=== PATIENT | female | born 1955 | race Caucasian/White ===

== ENCOUNTER 2023-01-28 05:04 | Observation (INO) ==
--- NOTE | 2023-01-14 10:42 | PAT Medication Instructions ---
Medication Instructions Date of Service January 14, 2023 Home Medications albuterol sulfate 90 mcg/actuation aerosol inhaler 1 inh inhalation QID PRN SOB amlodipine 5 mg tablet 5 mg PO QAM aspirin 81 mg capsule 81 mg PO QAM atorvastatin 10 mg tablet 10 mg PO QAM calcium carbonate 600 mg-vitamin D3 5 mcg (200 unit) tablet 1 tab PO QAM dulaglutide 1.5 mg/0.5 mL subcutaneous pen injector (Trulicity) 1.5 mg subcut WK esomeprazole magnesium 20 mg capsule,delayed release (Nexium) 20 mg PO QAM irbesartan 150 mg tablet 150 mg PO QAM metformin 500 mg tablet,extended release 24 hr 500 mg PO QAM multivitamin 1 tab PO QAM Continue as directed dulaglutide 1.5 mg/0.5 mL subcutaneous pen injector (Trulicity) 1.5 mg subcut WK DO NOT take the morning of surgery calcium carbonate 600 mg-vitamin D3 5 mcg (200 unit) tablet 1 tab PO QAM irbesartan 150 mg tablet 150 mg PO QAM metformin 500 mg tablet,extended release 24 hr 500 mg PO QAM multivitamin 1 tab PO QAM Take morning of surgery With a small sip of water, OTHERWISE NOTHING TO EAT OR DRINK AFTER MIDNIGHT: albuterol sulfate 90 mcg/actuation aerosol inhaler 1 inh inhalation QID PRN SOB (use if needed; please bring rescue inhaler with you to hospital day of surgery if possible) amlodipine 5 mg tablet 5 mg PO QAM aspirin 81 mg capsule 81 mg PO QAM (continue as normal unless told otherwise by surgeon) atorvastatin 10 mg tablet 10 mg PO QAM esomeprazole magnesium 20 mg capsule,delayed release (Nexium) 20 mg PO QAM Take evening before surgery albuterol sulfate 90 mcg/actuation aerosol inhaler 1 inh inhalation QID PRN SOB (if needed) Other Notes If you have any questions please call us at [phone] or [phone] or [phone] or [phone]
--- NOTE | 2023-01-17 11:00 | Anesthesiology Consultation ---
Date of Service January 17, 2023 Assessment & Plan (1) Encounter for pre-operative examination: - COVID screening: Per assessment on 01/17: No known COVID-19 positive contacts or current COVID-19 related symptoms. Travel screen negative. Patient vaccinated. At surgeon discretion if preop Covid testing being done. - Check BSG AM DOS - Outpatient joint assessment: Pt currently scheduled for inpatient pathway. If surgeon requests review for outpatient joint pathway, patient is not recommended candidate for outpatient joint program from anesthesia standpoint. - Patient acceptable risk for surgery pending surgeon-ordered PCP preop evaluation (Kathy Erickson/iwona Menchaca already done per pt). Chart Review Chart Review: Patient seen in Pre Admission Testing Teaching & Discussion Pre-Anesthesia Teaching/Discussion Notes: Instructed NPO after midnight before surgery,except medications with 15 cc of water. Medication instructions provided according to the PAT guidelines. History Surgery Operation Date: 01/28/23 07:15 Proposed Procedures p Left Total Knee Arthroplasty - Mateo Marino MD Height/Weight Height: 5 ft 4 in Weight: 98.1 kg Allergies Allergy/AdvReac Type Severity Reaction Status Date / Time Iodinated Contrast Media Allergy Severe Anaphylaxis Verified 01/14/23 08:27 onion Allergy Intermediate Verified 01/17/23 14:13 Medications Home Medications Medication Instructions Recorded Confirmed Last Taken albuterol sulfate 90 mcg/actuation 1 inh inhalation QID PRN SOB 01/14/23 01/14/23 Unknown aerosol inhaler amlodipine 5 mg tablet 5 mg PO QAM 01/14/23 01/14/23 Unknown aspirin 81 mg capsule 81 mg PO QAM 01/14/23 01/14/23 Unknown atorvastatin 10 mg tablet 10 mg PO QAM 01/14/23 01/14/23 Unknown calcium carbonate 600 mg-vitamin 1 tab PO QAM 01/14/23 01/14/23 Unknown D3 5 mcg (200 unit) tablet dulaglutide 1.5 mg/0.5 mL 1.5 mg subcut WK 01/14/23 01/14/23 Unknown subcutaneous pen injector (Trulicity) esomeprazole magnesium 20 mg 20 mg PO QAM 01/14/23 01/14/23 Unknown capsule,delayed release (Nexium) irbesartan 150 mg tablet 150 mg PO QAM 01/14/23 01/14/23 Unknown metformin 500 mg tablet,extended 500 mg PO QAM 01/14/23 01/14/23 Unknown release 24 hr multivitamin 1 tab PO QAM 01/14/23 01/14/23 Unknown Past Medical History Medical History Arthritis Diabetes mellitus, type 2 GERD (gastroesophageal reflux disease) Hx of migraines Hx of squamous cell carcinoma Hyperlipidemia Hypertension Reid's neuroma of left foot Neuropathy LEFT FOOT Exercise / Class Metabolic Activity II 4-5 Yardwork/Stairs/Walk up hill Past Family History Family History Other No family history of adverse response to anesthesia Past Surgical History Surgical History H/O abdominoplasty History of arthroscopy LEFT KNEE History of bilateral tubal ligation History of section X3 History of cholecystectomy History of colonoscopy History of partial hysterectomy History of tonsillectomy and adenoidectomy Nausea and vomiting after administration of anesthetic agent [place] teeth removed Past Anesthesia History No Hx of Anesthesia Complications (except single episode post-op nausea) *Grandmother- postop liver biopsy blood clot (resulted in )* History of PONV History of PONV (Single episode post-op nausea after knee scope) and Hx of Motion Sickness Social History Smoking Status: Never smoker Do You Dip or Chew Tobacco: No Hx Alcohol Use: Yes alcohol intake frequency: holidays/special occasions only Hx Substance Use: No substance use type: does not use Review of Systems Patient denies chest pain, shortness of breath, dyspnea on exertion, fever, chills, cough, wheezing, palpitations. Physical Exam Vital Signs VITALS BP 129/79 P 74 TEMP 98.2 SP02 95%RA RESP 18 PHYSICAL Full cervical extension range of motion. Full TMJ range of motion. TMD 3 finger breaths Mallampati Score 3 Dentition: intact, + implants, upper front veneers Lungs: clear throughout to auscultation Cardiac: regular rate and rhythm, no murmurs noted Spine: normal Carotid arteries: negative bruit Extremities: no edema Lab Results Anesthesia Preop Results Results Anesthesia Widget: WBC 7.89 K/ul (4.8-10.8) 01/17/23 Hgb 14.6 g/dl (12.0-16.0) 01/17/23 Hct 42.4 % (37.0-47.0) 01/17/23 Plt 260 K/uL (130-400) 01/17/23 Na 138 mmol/L (136-145) 01/17/23 K 4.2 mmol/L (3.5-5.1) 01/17/23 Cl 105 mmol/L (98-107) 01/17/23 CO2 25 mmol/L (21-32) 01/17/23 BUN 21 mg/dl (6-23) 01/17/23 Creat 0.62 mg/dl (0.6-1.2) 01/17/23 Glucose Level 101 mg/dl (70-99(Fasting)) H 01/17/23 PT 10.3 Seconds (9.0-12.0) 01/17/23 PTT 24.1 Seconds (21.0-31.0) 01/17/23 INR 1.0 (0.9-1.1) 01/17/23 HA1c 5.7 % (4.5-5.6) H 01/17/23 Urine Color Yellow 01/17/23 Urine Appearance Clear (Clear) 01/17/23 Urine pH 5.0 (4.5-7.5) 01/17/23 Urine Specific [place] 1.032 (1.000-1.030) H 01/17/23 Urine Protein Negative (Negative) 01/17/23 Urine Glucose (UA) Negative (Negative) 01/17/23 Urine Ketones Negative (Negative) 01/17/23 Urine Blood Negative (Negative) 01/17/23 Urine Nitrite Negative (Negative) 01/17/23 Urine Bilirubin Negative (Negative) 01/17/23 Urine Urobilinogen Negative (Negative) 01/17/23 Urine Leukocyte Esterase Negative (Negative) 01/17/23 Blood Type A Positive 01/17/23 Antibody Screen NEGATIVE 01/17/23 Testing Electrocardiogram Date: 01/09/23 Findings: + NSR @ (75) Chest X-Ray Date: 01/17/23 FINDINGS: No pneumothorax. No pleural effusions. The lungs are clear. The heart is normal in size. There is slight elevation the right hemidiaphragm. Prior cholecystectomy. Mild degenerative changes within the thoracic spine. IMPRESSION: No acute process. COVID-19 Risk Screen Screening Information COVID-19 Screen Date: 01/17/23 Exposure 21 Days Family/Household +COVID Last 21 Days: No Exposure 10 Days Any COVID Exposure Last 10 Days: No Symptoms Last 10 Days Experienced COVID Sx Last 10 Days: No + COVID 0-90 Days COVID + in Last 0-90 Days: No
[2023-01-28] MEDS ORDERED: ceFAZolin 2000MG 2,000 MG/15 ML SYR IV SCH (06:00)
[2023-01-28] MEDS ORDERED: LR 500ML BOLUS, THEN 15ML/HR IV SCH (06:00)
[2023-01-28] MEDS ORDERED: ROPIVACAINE 0.5% HCL/PF 150 MG, BUPIVACAINE 0.75% MPF 20 ML, EPINEPHrine 0.15 MG, Ketor... INFIL SCH (06:00)
[2023-01-28] MEDS ORDERED: LR 60ML/HR IV SCH (06:00)
[2023-01-28] MEDS ORDERED: TRANEXAMIC ACID 1,000 MG **IV Pre-op IV SCH (06:00)
[2023-01-28] MEDS ORDERED: BUPIVACAINE 0.5 % 5 MG/1 ML PF 10ML VIAL ONE (06:23)
[2023-01-28] MEDS ORDERED: BUPIVACAINE 0.25% PF 30 ML VIAL ONE (06:23)
--- NOTE | 2023-01-28 06:29 | History & Physical Bridge Note ---
Date of Service January 28, 2023 History & Physical Bridge Note I have examined the patient, reviewed the History & Physical and in the interval since the performance of the History & Physical I have noted the following changes of clinical significance:consent obtained/site verified, no changes noted
[2023-01-28] MEDS ORDERED: PROPOFOL IV EMULSION 10 MG/ML 20 ML VIAL IV ONE ×2 (06:38→07:18)
[2023-01-28] MEDS ORDERED: LIDOCAINE 2% MPF LOCAL 5 ML VIAL ONE (06:38)
[2023-01-28] MEDS ORDERED: fentaNYL citrate PF 100 MCG/2 ML VIAL ONE (06:39)
[2023-01-28] MEDS ORDERED: MIDAZOLAM HCL 1 MG/ML 2ML VIAL ONE ×2 (06:39→07:13)
[2023-01-28] MEDS ORDERED: ORTHO JOINT ANESTHETIC ONE (06:58)
[2023-01-28] MEDS ORDERED: KETAMINE 50 MG/5 ML SYRINGE ONE (07:26)
--- NOTE | 2023-01-28 08:46 | Post Operative Brief Note ---
Immediate Post Op Note v1 Date of Surgery January 28, 2023 Pre & Post Diagnosis Operation Date: 01/28/23 07:15 <No data on this case meets the specified criteria> I identified the patient and participated in the time-out.: Yes Procedure Operation Date: 01/28/23 07:15 <No data on this case meets the specified criteria> Surgeon Mateo Marino MD Cardiology Rn Chanel/Ronn/Deanne Estimated Blood Loss 25 Findings Consistent with Post-Op Diagnosis medial and PFJ grade 4 disease
--- NOTE | 2023-01-28 08:53 | Operative Report ---
Post Operative Report Pre & Post Diagnosis Operation Date: 01/28/23 07:15 Pre-Op Diagnosis: Left Knee Degenerative Joint Disease Post-Op Diagnosis: Left Knee Degenerative Joint Disease I identified the patient and participated in the time-out.: Yes Procedure Operation Date: 01/28/23 07:15 Actual Procedures p Left Total Knee Arthroplasty(Left) - Mateo Marino MD Surgeon Ned Card Placer Chanel/Ronn/Deanne Estimated Blood Loss 25 Findings Consistent with Post-Op Diagnosis Specimens See attending dictation Disposition Accompanied Patient To Recovery: Yes Disposition: Recovery Room Description of Procedure Patient was taken to the operating room where anesthesia was administered. Patient was prepped and draped in the usual sterile fashion. Please see attending's operative report for specifics of the procedure. I was present for the entire case from initial patient positioning through final wound closure. Assistance was provided in tissue retraction, hemostasis, and final wound closure. Patient was taken to the recovery room in satisfactory condition. I attest to the content of the Intraoperative Record and any orders documented therein. Any exceptions are noted below.
--- NOTE | 2023-01-28 09:03 | Operative Report ---
Post Operative Report Pre & Post Diagnosis Operation Date: 01/28/23 07:15 Pre-Op Diagnosis: Left Knee Degenerative Joint Disease Post-Op Diagnosis: Left Knee Degenerative Joint Disease I identified the patient and participated in the time-out.: Yes Procedure Operation Date: 01/28/23 07:15 Actual Procedures p Left Total Knee Arthroplasty(Left) - Mateo Marino MD Surgeon DEVANTE Marino MD Inspector Heating And Refrigeration Chanel/Ronn/Deanne Estimated Blood Loss 25 Findings Consistent with Post-Op Diagnosis see operative report Specimens see operative report Drains none Complications none Disposition Accompanied Patient To Recovery: Yes Indications This 68 year old female presented to the office with complaints of persisting left knee pain. She had tried conservative care measures without improvement. She elected to proceed with surgical intervention after being educated about potential risks and outcomes. Preoperative imaging was obtained. Description of Procedure The patient was administered a spinal anesthetic and then taken to the operating room where she was given sedation. She was prepped and draped in the usual sterile fashion. Please see Dr. Marino's operative report for specifics of the procedure. I was present for the entire case from initial patient positioning through final wound closure. Assistance was provided in tissue retraction, hemostasis, trial implant placement, final implant placement, and final wound closure. Patient was taken to the recovery room in satisfactory condition. I attest to the content of the Intraoperative Record and any orders documented therein. Any exceptions are noted below.
--- NOTE | 2023-01-28 09:07 | XRay Report ---
XR knee LT 1 or 2V routine HISTORY: 68 years-old Female S/P L TKA left knee total joint arthroplasty COMPARISON: 08/19/2022 TECHNIQUE: 2 views of the left knee FINDINGS: Total joint arthroplasty with patellar resurfacing. Anterior midline skin sung with expected posto perative soft tissue swelling and deep tissue air. No acute fracture or unexpected opaque foreign bod y. IMPRESSION: Total joint arthroplasty with expected postoperative changes. ACT 112: Negative or not required by law. The above report was generated using voice recognition software. It may contain grammatical, syntax o r spelling errors. Electronically signed by: Eugene Pineda M.D. 01/28/2023 9:06 AM
--- NOTE | 2023-01-28 09:08 | Discharge Summary (DS) ---
DATE OF ADMISSION: 01/28/2023. DATE OF POTENTIAL DISCHARGE: 01/29/2023. PREOPERATIVE DIAGNOSIS: Osteoarthritis, left knee. POSTOPERATIVE DIAGNOSIS: Osteoarthritis, left knee. HOSPITAL COURSE: The patient underwent elective left total knee replacement for intractable knee joao n. A preoperative assessment was good both from a cardiology and from a medical perspective. PAST MEDICAL HISTORY: Remarkable for arthritis, asthma, benign essential hypertension, skin cancer, chronic pain disorder, diabetes mellitus, GERD, hyperlipidemia. SOCIAL HISTORY: Reveals no tobacco or heavy alcohol use. She is and lives with her spouse. PREADMISSION MEDICATIONS: Include albuterol, amlodipine, aspirin, cholecalciferol, Trulicity, epinep hrine, Nexium, Avapro and Glucophage. REVIEW OF SYSTEMS: Presently reveals no chest pain, shortness of breath, fever, chills, nausea, vomi ting or headache. ASSESSMENT: Status post left total knee replacement. Hospital course to this point has been unevent ful. Continue postoperative care pathway. Discharge tomorrow. ALLERGIES: INCLUDE IODINATED CONTRAST MEDIA AND COVID-19 REACTION WITH SHORTNESS OF BREATH. Job ID: [id number]
--- NOTE | 2023-01-28 09:12 | Operative Report (OR) ---
DATE OF PROCEDURE: 01/28/2023. SURGEON: Mateo Marino MD. MULTIPLE KNIFE EDGE TRIMMER OPERATOR: Chanel. SECOND MULTIPLE KNIFE EDGE TRIMMER OPERATOR: Clive Brody PA-C/ THIRD MULTIPLE KNIFE EDGE TRIMMER OPERATOR: phillip Ailcea student. PREOPERATIVE DIAGNOSIS: Osteoarthritis, left knee, with varus flexion deformity. POSTOPERATIVE DIAGNOSIS: Osteoarthritis, left knee, with varus flexion deformity. OPERATION PERFORMED: Cemented left total knee replacement. SUMMARY OF IMPLANTS: Size 2 left femur posterior cruciate substituting size 2 rotating platform tray , size 35 patella, size 2 x 10 rotating platform PCL stabilizing insert, 2 bags of [place] G cement. ESTIMATED BLOOD LOSS: 25 mL. CRYSTALLOID: 1600 mL. PATHOLOGY: Pending on bone. DVT PROPHYLAXIS: Per protocol. PERIOPERATIVE SITUATION: Medically cleared female with intractable knee pain. At this point in time , wants to proceed with surgical treatment. She has recently failed arthroscopy done elsewhere. She understands that this is an implant and this could have roughly 20% of people with complaints. DESCRIPTION OF PROCEDURE: The patient was appropriately identified, site verified, consent verified. Antibiotics were confirmed as being given. The left lower extremity was prepped and draped in the usual routine fashion. Tourniquet was inflated to 275 mmHg after exsanguination of the limb with a r ubber Esmarch bandage for a total of 55 minutes. Midline exposure was utilized. Parapatellar arthrotomy performed. Synovectomy completed, osteophyte s resected. Distal femur entered. Cruciates resected. Tibia was subluxated, menisci resected. Dis becka femur resected 14 mm. Proximal tibia 4 mm, the extension gap was excellent. The femur was sized to a 2, appropriate cutting block applied and the anterior, posterior condylar and chamfer cuts were made. The flexion gap was slightly tight laterally. It was released a little bit and then fit well . The box cut was then made and the size 2 fit well. The tibia was then broached and reamed to a si ze 2 and it fit well. A 10 spacer gave excellent stability in all planes including full extension, f ull flexion and mid range flexion. The patella tracked well. The patella was resected leaving about 14 mm. A 35 button trial was then seated and it tracked well. The Orthomix was then injected all a bout the knee. All trial implants were removed. The wound was irrigated with Betadine and Pulsavac, and then the permanent cemented in position tibia, femur, and patella in that order. At 12 minutes, the tourniquet was deflated. Minor bleeding points controlled with electrocautery. At 14 minutes, the knee was flexed. The trial spacer removed. There was no cement removal required. The wound was irrigated with Pulsavac, Betadine, and then the permanent liner seated and the knee reduced and clos ed at 40 degrees of flexion using #2 Vicryl, 2-0 Vicryl and stainless steel clips. Appropriate dress ing applied and the patient was transferred to recovery room in satisfactory condition, having tolera lynda the procedure well. Job ID: [id number]
[2023-01-28] MEDS ORDERED: VANCOMYCIN CONSULT ACTIVE PRN (09:42)
[2023-01-28] MEDS ORDERED: MAGNESIUM HYDROXIDE SUSP 30 ML UDC PO PRN (09:42)
[2023-01-28] MEDS ORDERED: PHARMACY GLYCEMIC MGMT CONSULT PRN (09:42)
[2023-01-28] MEDS ORDERED: ALUMINUM/MAGNESIUM SUSP 30 ML UDC PO PRN (09:42)
[2023-01-28] MEDS ORDERED: METOCLOPRAMIDE HCL INJ 5 MG/ML 2 ML VIAL IV PRN (09:42)
[2023-01-28] MEDS ORDERED: ALBUTEROL HFA 8 GM INHALER INH PRN (09:42)
[2023-01-28] MEDS ORDERED: bisacodyL 10 MG SUPP PR PRN (09:42)
[2023-01-28] MEDS ORDERED: diphenhydrAMINE 50 MG/ML VIAL IV PRN (09:42)
[2023-01-28] MEDS ORDERED: NALOXONE HCL 0.4 MG/1 ML VIAL/CARP IV PRN (09:42)
--- NOTE | 2023-01-28 10:29 | Anesthesiology Progress Note ---
Date of Service January 28, 2023 Anesthesia Post Procedure Vital Signs Vital Signs: Temp Pulse Pulse Resp BP BP Pulse Ox 01/28/23 10:15 36.3 C L 67 16 142/85 H 95 01/28/23 09:30 36.6 C 67 13 132/75 93 01/28/23 09:20 73 15 130/71 92 01/28/23 09:10 67 15 125/71 96 01/28/23 09:00 74 15 124/67 92 01/28/23 08:51 36.3 C L 76 16 95/65 L 95 01/28/23 05:41 36.9 C 83 20 158/87 H 95 O2 Del Method 01/28/23 10:15 Room Air 01/28/23 09:30 Room Air 01/28/23 09:20 Room Air 01/28/23 09:10 Room Air 01/28/23 09:00 Room Air 01/28/23 08:51 Room Air 01/28/23 05:41 Room Air Transfer of Care Handoff Completed per policy Notes Mental Status: alert / awake / arousable and participated in evaluation Patient Amnestic to Procedure: Yes Nausea / Vomiting: adequately controlled Pain: adequately controlled Airway Patency, RR, SpO2: stable & adequate BP & HR: stable & adequate Hydration State: stable & adequate Neuraxial Anesthesia: was administered and sensory block is resolving Anesthetic Complications: no major complications apparent and Pt Satisfied with anesthetic care
[2023-01-28] MEDS ORDERED: CARBOHYDRATES FOR HYPOGLYCEMIA PO PRN (10:30)
[2023-01-28] MEDS ORDERED: GLUCOSE 10 TAB/TUBE PO PRN (10:30)
[2023-01-28] MEDS ORDERED: DEXTROSE 50% 50 ML SYRINGE IV PRN (10:30)
[2023-01-28] MEDS ORDERED: GLUCOSE 40% GEL 15 GM TUBE PO PRN (10:30)
[2023-01-28] MEDS ORDERED: GLUCAGON FOR INJ 1 MG VIAL IM PRN (10:30)
--- NOTE | 2023-01-28 10:45 | Pharmacy Report ---
Pharmacy Glycemic Short Note 2 - Date of Service January 28, 2023 - Glycemic Short BSG Results (Last 24 hours): 01/28/23 01/28/23 05:31 09:04 POC Glucose 124 H 99 OUTPATIENT ANTIDIABETIC REGIMEN: * Metformin 500 mg PO qAM * Trulicity 1.5 mg SQ weekly on Sundays * A1c = 5.7% (01/17/23) ASSESSMENT: * Nkechi is a 68 yo DM female s/p left total knee arthroplasty * Patient was not given IV or PO steroids in the OR, only ortho joint mix. She is well controlled as an outpatient. I anticipate insulin needs to be minimal. * Plan to resume metformin on POD #1 if patient is tolerating oral diet and evidence of renal function at baseline (if SCr ordered). PLAN FOR INPATIENT GLYCEMIC CONTROL: * Hold outpatient oral diabetes medications * Basal insulin * Hold * Bolus insulin * NovoLog per scale ACHS or Q6hrs while NPO * Goal Range: Low 110 mg/dL - High 140 mg/dL * Correction Factor: 25 mg/dL/unit * Nutritional / Prandial insulin per carb ratio of 1 unit per 8 grams CHO c onsumed
[2023-01-28] MEDS: DOCUSATE SODIUM 100 MG CAP PO SCH ×2 (12:37→20:06)
[2023-01-28] MEDS: LOSARTAN POTASSIUM 50 MG TAB PO SCH (12:37)
[2023-01-28] MEDS: MULTIVITAMIN TAB PO SCH (12:38)
[2023-01-28] MEDS: KETOROLAC TROMETHAMINE 15 MG/ML VIAL IV SCH ×3 (12:38→22:17)
[2023-01-28] MEDS: oxyCODONE HCL IR 5 MG TAB (IMMEDIATE RELEASE) PO PRN ×3 (12:41→23:50)
[2023-01-28] MEDS: SODIUM CHLORIDE 0.9% 1000ML 1,000 ML IV SCH ×2 (12:43→20:04)
[2023-01-28] MEDS: INSULIN ASPART PER UNIT CHARGE SC SCH ×4 (13:11→20:12)
[2023-01-28] MEDS: HYDROmorphone INJ 0.5 MG/0.5 ML SYR IV PRN ×3 (13:26→20:56)
[2023-01-28] MEDS ORDERED: TRANEXAMIC ACID / 0.7% NACL 1,000 MG/100 ML BAG IV SCH (15:00)
[2023-01-28] MEDS ORDERED: amLODIPine BESYLATE 5 MG TAB PO ONE (15:17)
--- NOTE | 2023-01-28 15:21 | Progress Notes ---
DATE OF NOTE: 01/28/2023 SUBJECTIVE: Postop check status post left total knee replacement. The patient is sitting up in bed, has been out of bed to the bathroom. She has no major issues. She is bearing weight, using a walker. She denies any chest pain, shortness of breath, fever, chills, n ausea, vomiting or headache. OBJECTIVE: Vital signs are stable. She is a little bit hypertensive. Make sure she gets her meds. Wound dressing clean, dry and intact. Neurovascular check, femoral sciatic nerve is normal. There w as good ankle dorsi and plantarflexion. Can do a straight leg raise. Postop x-rays look excellent. ASSESSMENT: Doing well status post left total knee replacement. PLAN: Continue care pathway. Prepare for discharge tomorrow. Observe hypertension. Job ID: [id number]
[2023-01-28] MEDS ORDERED: VANCOMYCIN HCL 1,500 MG in SODIUM CHLORIDE 0.9% 500 ML IV SCH ×2 (16:00→19:00)
[2023-01-28] MEDS: ACETAMINOPHEN 500 MG TAB PO SCH ×2 (16:06→22:17)
[2023-01-28] MEDS: ceFAZolin 2000MG 2,000 MG/15 ML SYR IV SCH ×2 (16:10→22:17)
[2023-01-28] MEDS: ONDANSETRON INJ 2 MG/ML 2 ML VIAL IV PRN ×2 (16:45→22:24)
[2023-01-28] MEDS: FERROUS GLUCONATE 324 MG TAB PO SCH (17:59)
[2023-01-28] MEDS: ASCORBIC ACID 500 MG TAB PO SCH (17:59)
[2023-01-28] MEDS ORDERED: SENNA 8.6 MG TAB PO SCH (21:00)
[2023-01-29] MEDS: HYDROmorphone INJ 0.5 MG/0.5 ML SYR IV PRN ×2 (01:38→10:27)
[2023-01-29] MEDS: oxyCODONE HCL IR 5 MG TAB (IMMEDIATE RELEASE) PO PRN ×2 (03:58→07:59)
[2023-01-29] MEDS: ACETAMINOPHEN 500 MG TAB PO SCH (05:19)
[2023-01-29] MEDS: KETOROLAC TROMETHAMINE 15 MG/ML VIAL IV SCH (05:19)
[2023-01-29 07:32] LABS: Hematocrit (blood only) 35.2 % (37.0-47.0); Hemoglobin 11.9 g/dl (12.0-16.0); Mean Corpuscular Hemoglobin 30.1 pg (25.0-34.0); Mean Corpuscular Hgb Conc 33.8 g/dL (32.0-36.0); Mean Corpuscular Volume 88.9 fL (80.0-100.0); Mean Platelet Volume 9.3 fL (9.4-12.4); Platelet Count 255 K/uL (130-400); RDW Coefficient of Variation 12.6 % (11.5-14.5); RDW Standard Deviation 40.7 fL (36.4-46.3); Red Blood Count 3.96 M/uL (4.20-5.40)
[2023-01-29] MEDS: ONDANSETRON INJ 2 MG/ML 2 ML VIAL IV PRN (08:26)
[2023-01-29] MEDS: ASCORBIC ACID 500 MG TAB PO SCH (08:29)
[2023-01-29] MEDS: LOSARTAN POTASSIUM 50 MG TAB PO SCH (08:30)
[2023-01-29] MEDS: DOCUSATE SODIUM 100 MG CAP PO SCH (08:31)
[2023-01-29] MEDS: MULTIVITAMIN TAB PO SCH (08:31)
[2023-01-29] MEDS: FERROUS GLUCONATE 324 MG TAB PO SCH (08:31)
[2023-01-29] MEDS ORDERED: amLODIPine BESYLATE 5 MG TAB PO SCH (09:00)
[2023-01-29] MEDS ORDERED: PANTOprazole 40 MG TAB PO SCH (09:00)
[2023-01-29] MEDS ORDERED: APIXABAN 2.5 MG TAB PO SCH (09:00)
[2023-01-29] MEDS ORDERED: ATORVASTATIN 10 MG TAB PO SCH (09:00)
[2023-01-29] MEDS ORDERED: ASPIRIN 81 MG ECTAB PO SCH (09:00)
--- NOTE | 2023-01-29 09:03 | Orthopedic Progress Note ---
Date of Service January 29, 2023 Assessment & Plan (1) S/P total knee replacement using cement: Plan: The patient was seen in her room this morning. Her postsurgical dressing was changed. NAKUL hose were applied. She has her knee immobilizer in place. She will use this when out of bed today and tomorrow, and discontinue on Friday morning when she comes to PT. Prescriptions for Eliquis, Percocet, and Zofran have been sent to her pharmacy. She will take her Eliquis twice per day, starting this morning. Follow-up in PT on Friday as scheduled. Discharge to home today after PT/OT. Call the office with any other concerns. Written discharge instructions have been provided. Admission and Anticipated Discharge Date Admission Date: January 28, 2023 Subjective This 68-year-old female seen today in her room. She states she is doing very well. She has already finished her breakfast. She is getting some nausea when she takes her Percocet. She is requesting Zofran to go home. She denies any chest pain, shortness of breath, vomiting, abdominal pain, or significant knee pain. She has been out of bed and has ambulated using her walker. She feels ready for discharge to home today. She has PT scheduled in the office on Friday. Review of Systems Review of Systems: Unchanged from yesterday. Physical Exam Physical Exam: General: Well-developed, well-nourished, middle-aged female, in no acute distress. Sitting in a chair. Alert and oriented. Conversive. Has already finished her breakfast. Skin: Warm and dry with good turgor. Postsurgical dressings are in place. Upon removal, there is scant dried blood on her inner dressing. No ecchymosis. No significant edema. An are intact. No active bleeding. Musculoskeletal: The patient has intact motor function of the left leg. She is able to perform a straight leg raise. She is able to set her quad. Intact motor function of her ankle. She has full terminal extension. Flexion to around 45 degrees without difficulty. Neurologic: Gross sensation is intact across the left leg by soft touch. Peripheral pulses are 2+. Results & Data Vital Signs (Past 12 Hours) Vital Signs Temp Pulse Resp BP Pulse Ox O2 Del Method 01/29/23 08:16 36.7 C 76 18 142/73 H 94 Room Air 01/29/23 03:08 36.5 C 85 18 126/79 95 Room Air 01/29/23 02:05 36.8 C 76 16 146/82 H 98 Room Air 01/28/23 22:42 36.4 C L 80 18 123/80 91 Room Air Laboratory Results CBC obtained today shows a white count of 17.7. Hemoglobin 11.9, hematocrit 35.2. Bedside glucose is 136. Her max overnight was 187. The rest of the PRP is pending.
[2023-01-29] MEDS: INSULIN ASPART PER UNIT CHARGE SC SCH (09:22)
[2023-01-29 09:34] LABS: Calcium 8.9 mg/dl (8.6-10.3); Potassium 4.2 mmol/L (3.5-5.1)
[2023-01-29 09:39] LABS: BUN Creatinine Ratio 29.3 (10-20); Creatinine Clr Calc Pharmacy 83.7 ml/min; Est GFR (African American) 96.3 ml/min; Est GFR (Non-African American) 83.1 ml/min
== END 2023-01-29 11:58 | disposition home health service (06) ==
LOC: ASU 05:04 → 3E 05:04